=== PATIENT | male | born 1970 | race Caucasian/White ===

== ENCOUNTER 2022-08-01 07:50 | Emergency (ER) | payer OTHER, MEDICARE ==
[2022-08-01] MEDS ORDERED: Ketorolac 30 MG/ML SDV IVPUSH ONE (08:45)
[2022-08-01] MEDS ORDERED: Sodium Chloride 0.9% 1,000 ML IV SCH (08:45)
[2022-08-01] MEDS ORDERED: Sodium Chloride 0.9% 10 ML Syringe FLUSH PRN (08:45)
[2022-08-01] MEDS ORDERED: Ondansetron 4 MG/2 ML SDV IVPUSH ONE (08:45)
[2022-08-01 09:10] LABS: CORONAVIRUS COVID-19 NAA NEGATIVE (NEGATIVE)
[2022-08-01 09:23] LABS: ESTIMATED GFR 101 mL/min (>60)
== END 2022-08-01 10:44 | disposition home or self-care (01) ==
LOC: JP.ED 07:50
DX: A08.4 Viral intestinal infection, unspecified (principal); K21.00 Gastro-esophageal reflux disease with esophagitis, without bleeding; E86.0 Dehydration; Z91.041 Radiographic dye allergy status; Z88.8 Allergy status to other drugs, medicaments and biological substances; Z20.822 Contact with and (suspected) exposure to COVID-19
CPT/HCPCS: 0241U; 36415; 80053; 83690; 85025; 96361; 96374; 96375; 99283; 99284-25; J1885; J2405; J3490; J7030

== ENCOUNTER 2024-01-03 11:35 | Emergency (ER) | payer OTHER, MEDICARE ==
[2024-01-03 12:46] LABS: BASOPHILS ABSOLUTE AUTO 0.06 K/uL (0.00-0.10); BASOPHILS PERCENT AUTO 0.7 % (0.1-1.3); EOSINOPHILS PERCENT AUTO 0.2 % (0.0-5.4); HEMOGLOBIN 13.9 g/dL (12.9-16.9); IMMATURE GRAN ABSOLUTE AUTO 0.04 K/uL (0.00-0.23); IMMATURE GRAN PERCENT AUTO 0.5 % (0.0-0.7); LYMPHOCYTES ABSOLUTE AUTO 1.05 K/uL (0.8-3.3); LYMPHOCYTES PERCENT AUTO 11.8 % (11.4-47.7); MEAN CORPUSCULAR HGB CONC 35.6 g/dL (31.6-35.5); MEAN CORPUSCULAR VOLUME 84.2 fL (81.4-99.0); MONOCYTES ABSOLUTE AUTO 0.66 K/uL (0.20-0.90); MONOCYTES PERCENT AUTO 7.4 % (3.3-12.6); NEUTROPHILS ABSOLUTE AUTO 7.04 K/uL (1.0-7.6); NEUTROPHILS PERCENT AUTO 79.4 % (40.0-78.1); PLATELET COUNT,PLT 201 K/uL (130-375); RED BLOOD CELL COUNT 4.63 M/uL (4.14-5.76); WHITE BLOOD CELL COUNT,WBC 8.9 K/uL (3.2-11.0)
[2024-01-03] MEDS: Aspirin 81 MG Tab.Chew PO ONE (12:55)
[2024-01-03 13:10] LABS: ANION GAP 9.9 mmol/L (5.0-14.0); BLOOD UREA NITROGEN,BUN 16 mg/dL (7-18); CALCIUM 10.3 mg/dL (8.5-10.1); CARBON DIOXIDE,CO2 26 mmol/L (21-32); CHLORIDE,CL 106 mmol/L (100-108); CREATININE 1.2 mg/dL (0.8-1.3); EOSINOPHILS ABSOLUTE AUTO 0.02 K/uL (0.00-0.40); EST CRCL DRUG DOSING (CG) 69.55 mL/min; ESTIMATED GFR 71 mL/min (>60); GLUCOSE RANDOM 98 mg/dL (74-106); SODIUM,NA 142 mmol/L (140-148)
[2024-01-03 13:11] LABS: TROPONIN I HIGH SENSITIVITY < 4.0 pg/mL (<=60.3)
== END 2024-01-03 14:26 | disposition home or self-care (01) ==
LOC: JP.ED 11:35
DX: R07.89 Other chest pain (principal); I10 Essential (primary) hypertension; K21.9 Gastro-esophageal reflux disease without esophagitis; Z91.041 Radiographic dye allergy status; Z88.8 Allergy status to other drugs, medicaments and biological substances; Z79.899 Other long term (current) drug therapy
CPT/HCPCS: 36415; 71046; 80048; 84484; 85025; 85379; 93005; 99285; A9270

== ENCOUNTER 2024-01-26 06:44 | Day surgery (SDC) | payer OTHER, MEDICARE ==
[2024-01-26] MEDS ORDERED: Midazolam 1 MG/ML 2 ML SDV ONE (07:26)
[2024-01-26] MEDS ORDERED: Propofol 200 MG/20 ML SDV ONE (07:27)
[2024-01-26] MEDS ORDERED: fentaNYL 50 MCG/ML SDV ONE (07:27)
[2024-01-26] MEDS ORDERED: Lactated Ringers 1,000 ML IV SCH (07:30)
[2024-01-26] MEDS: Sodium Chloride 0.9% 1,000 ML IV SCH (09:34)
== END 2024-01-26 10:38 | disposition home or self-care (01) ==
LOC: JP.SDS 06:44
PROVIDERS: ATTEND Surgery
DX: K22.89 Other specified disease of esophagus (principal); K44.9 Diaphragmatic hernia without obstruction or gangrene; K21.9 Gastro-esophageal reflux disease without esophagitis
CPT/HCPCS: 00731; 43239; 88305; J2250; J2704; J3010; J7030